=== PATIENT | female | born 1995 | race Caucasian/White ===

== ENCOUNTER 2017-12-04 20:51 | Emergency (ER) | payer OTHER ==
[~2017-12-04] VITALS: Ht 170.2 cm; Wt 90.2 kg
[2017-12-04 20:55] VITALS: TEMP 36.8; Ht 170.2 cm; Wt 90.2 kg
--- NOTE | 2017-12-04 21:34 | EMERGENCY ROOM VISIT NOTE ---
History Report prepared by Danielle: Randal Greer Under the Supervision of: Dr. Kirt Bucio M.D. First contact with patient: 21:14 Chief Complaint: WOUND INFECTION Stated Complaint: SPIDER BITE? GETTING WORSE,CELLULITIS? Nursing Triage Summary: Patient reports she thinks she was bit by a spider on her right upper thigh approx 2 weeks ago. Now reporting the area is increasing in size and itchiness. History of Present Illness The patient is a 22 year old white male with a past medical history of eczema who presents to the ED with a cc of a worsening bite to the front of her right thigh beginning 11 days ago. Positive warmth, itching, redness. Negative fevers , chills, throat swelling, shortness of breath, pain to palpation, tick bites, seeing what bit her. Pt states it felt like a sting of a bee, but it has not gotten better. She reports her LNMP ended today. Source of History: patient Onset: 11 days Position: leg (right, front thigh) Quality: other (bite) Timing: worsening Associated Symptoms: No fevers, No chills, No SOB Note: Positive warmth, itching, redness. Denies throat swelling, pain to palpation Review of Systems See HPI for pertinent positives and negatives. A total of ten systems were reviewed and were otherwise negative. Past Medical & Surgical Medical Problems: (1) Eczema Family History Patient reports no known family medical history. Social History Smoking Status: Never Smoker Smokeless Tobacco Use: No Alcohol Use: occasionally Housing Status: lives with friends Occupation Status: employed Current/Historical Medications Scheduled Control Pills ( Control Pills), 1 TAB PO DAILY Cephalexin Monohydrate (Keflex), 500 MG PO QID Prednisone (Prednisone), 50 MG PO DAILY Allergies Coded Allergies: No Known Allergies (Unverified , 12/04/17) Physical Exam Vital Signs Date Time Temp Pulse Resp B/P (MAP) Pulse Ox O2 Delivery O2 Flow Rate FiO2 12/04/17 23:33 73 18 126/75 100 12/04/17 20:55 36.8 103 18 138/88 97 Room Air Physical Exam GENERAL: Awake, alert, well-appearing, NAD HENT: Normocephalic, atraumatic. EYES: Normal conjunctiva. Sclera non-icteric. PERRL. No anisocoria. NECK: Supple. No nuchal rigidity. FROM. RESPIRATORY: CTAB, no rhonchi, wheezing, crackles CARDIAC: RRR, no MRG ABDOMEN: Soft, NTND, BS+ MSK: No chest wall TTP, no LE edema NEURO: GCS 15, CN 2-12 intact, moves all 4s on command SKIN: No jaundice noted. Trace erythema. Questionable target lesion over the right lateral proximal thigh no induration or fluctuance. Blanches. Medical Decision & Procedures Laboratory Results Test 12/04/17 21:54 Lyme Disease IgG Antibody NEG (NEG) Lyme Disease IgM Antibody NEG (NEG) Laboratory results reviewed by me Medications Administered Medications (Trade) Dose Ordered Sig/Og Route Start Time Stop Time Status Last Admin Dose Admin Prednisone (PredniSONE TAB) 60 mg NOW STAT PO 12/04/17 21:41 12/04/17 21:42 DC 12/04/17 21:55 60 MG Diphenhydramine HCl (Benadryl Cap) 25 mg NOW ONCE PO 12/04/17 21:45 12/04/17 21:46 DC 12/04/17 21:55 25 MG ED Course 2: The patient was evaluated in room A02. A complete history and physical exam was performed. 2314: I reevaluated the patient. Discussed results and discharge instructions: she verbalized understanding and agreement. The patient is ready for discharge. Medical Decision The patient is a 22 year old white male with a past medical history of eczema who presents to the ED with a cc of a worsening bite to the front of her right thigh beginning 11 days ago. Nursing notes reviewed. Ancillary studies and prior records reviewed. Differential diagnosis: Etiologies such as cellulitis, abscess, MRSA infection, DVT, necrotizing fasciitis, dermatitis, drug eruption, allergies, as well as others were entertained. Patient was seen and evaluated the bedside. The patient noticed that she had a bite to right thigh approximately 11 days prior. The patient was told by her mother had spoken some nurse friends about concern for possible cellulitis. The patient denies any fevers. The patient is noted some mild itching to the area. The patient is unsure as to what may have caused the bite or stinging sensation. Patient denies any shortness of breath or difficulty with secretions or sore throat or throat swelling. The patient has a fairly unremarkable exam. The patient does have some faint redness and questionable target lesion over the right lateral anterior thigh. No evidence of any fluctuance or induration or drainage. The patient does have a Lyme's test checked. This was negative. The patient was given first dose of prednisone and some Benadryl. The patient was told that she should continue more allergic reaction type symptoms and see if her skin manifestations resolve over the next 24-48 hours and if they do not she can take a prescription for Keflex as an outpatient. Patient was told not to take this unless she does not improve. Patient was told return if she has any worsening symptoms. Patient was given strict follow-up, discharge, and return precautions. All questions were answered. Patient was deemed suitable for outpatient follow-up at this time. Patient agreed with the plan of care and was safely discharged home. Medication Reconcilliation Current Medication List: was personally reviewed by me Blood Pressure Screening Patient's blood pressure: Normal blood pressure Blood pressure disposition: Did not require urgent referral Impression Primary Impression: Allergic reaction Scribe Attestation The scribe's documentation has been prepared under my direction and personally reviewed by me in its entirety. I confirm that the note above accurately reflects all work, treatment, procedures, and medical decision making performed by me. Departure Information Dispostion Home / Self-Care Prescriptions Prednisone (PREDNISONE) 50 Mg Tab 50 MG PO DAILY for 4 Days, #4 TAB Prov: Kirt Bucio M.D. 12/04/17 Cephalexin Monohydrate (Keflex) 500 Mg Cap 500 MG PO QID for 7 Days, #28 CAP Prov: Kirt Bucio M.D. 12/04/17 Referrals No Doctor, Assigned (PCP) Forms HOME CARE DOCUMENTATION FORM, IMPORTANT VISIT INFORMATION, WORK / SCHOOL INSTRUCTIONS Patient Instructions My [facility] Additional Instructions Please return to the emergency department if you have worsening or recurrent symptoms not amenable to at-home treatment. Please call for a follow-up appointment with her primary care physician. Please take your medications as prescribed. If you have other concerns and/or complaints please feel free to also call your primary care physician's office or return the ED for further evaluation, management, and treatment. You may take 600 mg Ibuprofen every 6 hours as needed for pain/fever with food unless told by your physician not to take NSAIDs. You may take tylenol 650 mg every 6 hours as needed for pain/fever unless told by your physician to not take it or have liver problems. You may take motrin and tylenol separately or at the same time. Take your medications as prescribed. If taking an antibiotic consider taking a probiotic and/or eating yogurt, but at the least, please take with food as it can cause upset stomach. Please take your steroids preferably in the morning and with food as they may cause some upset stomach and cause you to be very awake and alert. You may consider Benadryl or Cortaid cream. Please do not use the cortisone based cream for more than 2 days at a time as this may cause some skin thinning. You may also consider calamine lotion. You may consider Benadryl. You may also consider oatmeal baths. Please also consider only bathing once daily and making sure that your water is not very hot as washing too frequently and/or using very hot water may also cause some skin dryness and worsening itchiness. Please consider using creams as opposed to lotions as the lotions typically have alcohols which may also further worsen skin dryness and itchiness. You have been examined and treated today on an emergency basis only. This is not a substitute for, or an effort to provide, complete comprehensive medical care. It is impossible to recognize and treat all injuries or illnesses in a single emergency department visit. It is therefore important that you follow up closely with [facility], your PCP, and/or your specialist(s). Call as soon as possible for an appointment. Thank you for your time and consideration. I look forward to speaking with you again soon. Please don't hesitate to call us if you have any questions. Problem Qualifiers Primary Impression: Allergic reaction Encounter type: initial encounter Qualified Codes: T78.40XA - Allergy, unspecified, initial encounter
[2017-12-04] MEDS ORDERED: BCPILLS PO (22:09)
[2017-12-04] MEDS ORDERED: CEPH500C PO (23:26)
[2017-12-04] MEDS ORDERED: PRED50TA PO (23:26)
[2017-12-04 23:33] VITALS: BP 126/75; PULSE 73; O2SAT 100
== END 2017-12-04 23:30 | disposition home or self-care (01) ==
LOC: C.EDB 20:52 → C.EDA 23:30
DX: T78.40XA Allergy, unspecified, initial encounter (principal); X58.XXXA Exposure to other specified factors, initial encounter; Z79.3 Long term (current) use of hormonal contraceptives